=== PATIENT | female | born 1965 | race Caucasian/White ===

== ENCOUNTER 2019-02-23 15:05 | Emergency (ER) | payer BC ==
[2019-02-23 15:15] VITALS: BP 152/86
[2019-02-23] MEDS ORDERED: KETOROLAC 30 MG/1 ML SDV IM ONE (15:30)
[2019-02-23] MEDS ORDERED: CYCLOBENZAPRINE 10 MG TAB PO ONE (15:31)
--- NOTE | 2019-02-23 15:34 | EDPHY ---
H & P Time Seen by Provider: 02/23/19 15:15 HPI/ROS: HPI Upper back pain. 53-year-old female by private vehicle with her . This patient reports that she awoke from a nap just prior to arrival with pain in her right upper paraspinal area. She describes the pain as involving the belly of the trapezius muscle. She describes it as a tight and sharp ache. She had this pain once before back in August of 2016. She was treated successfully with conservative management. No history of trauma. She reports that she thinks she may have slept with her neck in an awkward position. No shortness of breath. Denies chest pain. No fever. No cough. No difficulty swallowing. ROS: Constitutional: No fever, no chills. No weakness. ENT: No sore throat. Respiratory: No cough. No shortness of breath. Cardiac: No chest pain. Musculoskeletal: As above. No neck pain. No shoulder pain. Skin: No rashes. Neurological: No headache. No focal weakness or altered sensation. Past medical history: She denies any significant past medical history. Social history: She is a smoker. She is here with her . No alcohol. Physical Exam: General Appearance: Alert, she does not appear to be in distress. This patient is responding to questions appropriately and in full sentences. This patient appears well-hydrated and well-nourished. Eyes: Pupils equal and round no pallor or injection. No lid edema, erythema or injection. Neck and upper back exam: Significant for a focal area of tenderness on palpation with muscle tightness and spasming mid trapezius body on the right, paraspinal involving the soft tissues over the 1st to 2nd thoracic transverse process and facet joint area. No rash. She has no midline cervical, thoracic tenderness on palpation. No significant paraspinal cervical tenderness on palpation. The right glenohumeral joint ranges both actively and passively in all planes and motion without any pain or impingement. The right upper extremity is neurovascularly intact and symmetrical with the left upper extremity. Neurological: Motor sensory function is grossly intact. Cranial nerves are normal. Gait is normal. Skin: Warm and dry, no rashes. Musculoskeletal: As above. Extremities are symmetrical. All joints range without pain or impingement. Psychiatric: No agitation. No depression. Database: EKG: EKG time is 3:23 p.m.; EKG shows a narrow complex normal sinus rhythm with a ventricular rate of 75. Possible left atrial enlargement. The NE, QRS, QT intervals are within normal limits. There are no ST-T wave changes indicative of ischemic or injury pattern. No evidence of right heart strain. Interpreted by me. Imaging: Procedures: Emergency department course: Triage vital signs reviewed. She is moderately hypertensive. Vital signs are otherwise normal. She is afebrile. Patient's presentation is consistent with a spasmodic torticollis possibly secondary to a facet joint arthropathy. I believe this will be a self-resolving issue as it was the last time she was here for this complaint. Medications reviewed. No contraindications to NSAIDs. No history of renal dysfunction or peptic ulcer disease. She will be given 30 mg of intramuscular Toradol. She will be given 1 10 mg Flexeril. She feels comfortable going home with her who is driving. I have instructed her on medication dosing. She will be prescribed Flexeril over the next 3 days. I also discussed resuming ibuprofen starting tomorrow morning. Follow-up and return to emergency department precautions thoroughly reviewed with her. All of her questions were answered. She was discharged from the emergency department in good condition with her who is driving. Differential Diagnosis: The differential diagnosis on this patient includes but is not limited to spasmodic torticollis, upper thoracic facet joint arthropathy. Spinal fracture , dislocation unlikely. Adhesive capsulitis, pulmonary embolism, acute coronary syndrome, pneumothorax unlikely. This represents a partial list of diagnoses considered. These considerations are based on history, physical exam , past history, reassessment and diagnostic testing. Smoking Status: Heavy smoker Constitutional: Initial Vital Signs Temperature (C) 36.4 C 02/23/19 15:10 Heart Rate 83 02/23/19 15:10 Respiratory Rate 16 02/23/19 15:10 Blood Pressure 152/86 H 02/23/19 15:10 O2 Sat (%) 96 02/23/19 15:10 O2 Delivery Mode Room Air Allergies/Adverse Reactions: No Known Allergies Allergy (Verified 02/23/19 15:14) Home Medications: Medication Instructions Recorded Hydrocodone/APAP 5/325 [[place] 1 - 2 tab PO Q4-6PRN PRN #10 tab 08/27/ 5/325 (RX)] Cyclobenzaprine [Flexeril 10 MG 10 mg PO TID #9 tab 02/23/19 (*)] Departure - Departure Disposition: Home, Routine, Self-Care Clinical Impression: Spasmodic torticollis, Facet arthropathy of spine Condition: Good Instructions: Spasmodic Torticollis (ED) Additional Instructions: Read and follow provided instructions. Follow-up with your primary care physician as discussed in the next 1-2 days for re-evaluation. Take muscle relaxants medication as prescribed. Starting tomorrow morning take ibuprofen. Ibuprofen dosin mg every 6 hours with meals for the next 3 days only. Take only as needed for pain. Return to the emergency department for worsening pain, fever, shortness of breath, difficulty swallowing or other serious concerns. Referrals: Crescencio Lopez MD [Primary Care Provider] - As per Instructions Prescriptions: Cyclobenzaprine [Flexeril 10 MG (*)] 10 mg PO TID #9 tab
--- NOTE | 2019-02-25 07:07 | CPEKG ---
Test Reason : OPEN Blood Pressure : / mmHG Vent. Rate : 075 BPM Atrial Rate : 075 BPM P-R Int : 155 ms QRS Dur : 076 ms QT Int : 385 ms P-R-T Axes : 079 000 067 degrees QTc Int : 430 ms Sinus rhythm Probable left atrial enlargement Confirmed by Jael Short ([id number] on 02/25/2019 7:07:06 AM Referred By: Jael Short Confirmed By:Jael Short
== END 2019-02-23 15:55 | disposition home or self-care (01) ==
LOC: CED 15:05
DX: G24.3 Spasmodic torticollis (principal); M46.94 Unspecified inflammatory spondylopathy, thoracic region; F17.200 Nicotine dependence, unspecified, uncomplicated
CPT/HCPCS: 99283-ER; J1885

== ENCOUNTER 2019-03-30 07:24 | Emergency (ER) | payer BC | END 2019-03-30 08:37 | disposition short-term general hospital (02) | LOC: CED 07:24 ==